=== PATIENT | female | born 1935 | race Caucasian/White ===

== ENCOUNTER → 2017-10-08 | Outpatient (CLI) | payer MEDICARE, OTHER ==
[2017-10-08 11:14] VITALS: BP 154/70; BP 159/69; BP 169/71
--- NOTE | 2017-10-08 14:04 | NUR ---
TRANSFUSION COMPLETED AND TOLERATED WELL. DENIES ADVERSE REACTION AND NONE NOTED. DENIES QUESTIONS OR NEEDS AT DISCAHRGE.
== END ==
LOC: M.INFUS 08:52
DX: N18.9 Chronic kidney disease, unspecified (principal); D63.1 Anemia in chronic kidney disease